=== PATIENT | female | born 1955 | race Caucasian/White ===

== ENCOUNTER 2018-08-18 06:30 | Day surgery (SDC) | payer BC, SELFPAY ==
[2018-08-18 06:51] VITALS: BP 146/84; PULSE 62; RESP 16; TEMP 36; O2SAT 98
[2018-08-18] MEDS: Lidocaine 2% Pres-Free 5 ML VIAL 10 ML IJ (07:27)
--- NOTE | 2018-08-18 07:50 | W.PM.DSUDISC ---
Discharge Plan Disposition Condition: Improving Discharge Details Reason For Visit: LMF TRIGGER FINGER Attending Provider: Aris Reynoso Primary Care Provider: ANGELY PAN Home Meds and New Rx's Prescriptions: No Action levothyroxine 125 mcg Capsule 125 mcg PO DAILY RF: 0 chromium picolinate 200 mcg Capsule 200 mcg PO DAILY RF: 0 cholecalciferol (vitamin D3) [Vitamin D3] 1,000 unit Capsule 1,000 units DAILY RF: 0 alpha lipoic acid 50 mg Tablet 50 mg PO DAILY RF: 0 omega 9-upm-dws-fish oil [Fish Oil] 1,000 mg (120 mg-180 mg) Capsule 1 cap PO DAILY RF: 0 Discharge Instructions Additional Instructions: Keep your left hand elevated above heart level as needed to help control pain and swelling. Expect some bloody drainage on the gauze bandage. You may use your left hand as much as comfort allows as using it will not compromise the surgical results. For showering tomorrow, use a plastic bag with a rubber band about the wrist to keep the gauze dry. This allows the incision to seal. On 08/20/19, you may remove all of your bandages and get your incision wet in the shower with soap and water. Gently pat the stitch dry and cover it with a bandaid. Resume normal use as tolerated. Follow-up with Dr. Reynoso in 1 week for stitch removal. Take tylenol or advil for any discomfort. Take your regular medications as before. Activity:: Activity as Tolerated Remove Dressings/Wound Care:: 48 hours Shower/Bathe:: 48 hours Activity:: Activity as Tolerated Diet:: As Tolerated
--- NOTE | 2018-08-18 10:30 | ROE_ITS ---
REPORT OF OPERATIVE PROCEDURE DATE OF PROCEDURE August 18, 2018 PREOPERATIVE DIAGNOSIS Triggering of left middle finger. POSTOPERATIVE DIAGNOSIS Triggering of left middle finger. SURGEON Aris Reynoso M.D. PEDIATRIC ORTHODONTIST Nurse. ANESTHETIC 2% Xylocaine plain. PREP ChloraPrep. INDICATIONS This patient is a left-hand dominant 62-year-old female who has been bothered by triggering of her le ft middle finger. This interferes with her activities of daily living. I recommended release of the A 1 deonte and described the operative procedure in detail with the patient. I re-reviewed this today i n the Day Surgery holding area. I marked her left middle finger. She understood and wished to proceed . DESCRIPTION OF PROCEDURE The patient was taken to the Operating Suite. The left hand was prepped and draped sterilely. ChloraP rep was used as a skin prep. Time-out was instituted to verify the patient, procedure and her allergi es. Then 2% lidocaine was then used to create an anesthetic wheal at the metacarpal phalangeal joint region of the hand. After waiting an appropriate amount of time and determining tip numbness of the middle finger, I then proceeded to make a transverse incision approximately 1/2 inch in length over t he A1 deonte. After solely making the incision, blunt dissection was utilized to expose the flexion tendon sheath. Ragnell retractors were inserted. The A1 deonte was identified and a small slit was ma de in it with a #15-scalpel blade, this was extended Littler scissors. I then had the patient flex an d extend her middle finger and she could do so fully and could make a tightly clenched fist without a ny catching or triggering. The wound was then irrigated and closed with a single suture of #5-0 Ethil on in a horizontal mattress fashion. The wound was dressed with Xeroform gauze, 4x4s gauze bandage a nd a 2-inch conforming gauze bandage. The patient was taken to the Out Patient Recovery Room in satis factory condition, tolerating the procedure well.
== END 2018-08-18 08:11 | disposition home or self-care (01) ==
PROVIDERS: PCP Legal Medicine; Visit Provider Orthopaedic Surgery
PROC: (CPT 26055; principal; 2018-08-18 07:30)
DX: M65.332 Trigger finger, left middle finger (principal)
CPT/HCPCS: 26055